=== PATIENT | female | born 1985 | race Caucasian/White ===

== ENCOUNTER 2025-02-23 05:20 | Inpatient (IN) | payer MEDICAID, OTHER ==
[2025-02-23] MEDS ORDERED: Famotidine/PF 20 mg/2ml Vial SLOW IVP PRN (05:52)
[2025-02-23] MEDS ORDERED: Bicitra 30 ML UDCUP PO PRN (05:52)
[2025-02-23] MEDS ORDERED: hydrALAZINE 20 MG/ML VIAL SLOW IVP PRN ×2 (05:52→09:58)
[2025-02-23] MEDS ORDERED: Ondansetron PF 4 MG/2 ML Vial IVP PRN ×2 (05:52→09:58)
[2025-02-23] MEDS ORDERED: Diphenoxylate HCl/Atropine Tablet PO PRN (05:52)
[2025-02-23] MEDS ORDERED: Methylergonovine 0.2 MG/ML VIAL IM PRN ×2 (05:52→09:58)
[2025-02-23] MEDS ORDERED: Acetaminophen 500 MG TAB PO PRN (05:52)
[2025-02-23] MEDS ORDERED: Carboprost 250 MCG/ML AMP IM PRN (05:52)
[2025-02-23] MEDS ORDERED: Tranexamic Acid 1,000 MG/10 ML VIAL IVP PRN (05:52)
[2025-02-23 05:59] VITALS: BMI 36.2
[2025-02-23] MEDS ORDERED: Oxytocin 30 units/NS 500 ML 500 ML IV SCH ×2 (06:00→09:58)
[2025-02-23 06:06] LABS: Hematocrit 33.9 % (34.9-44.5); Hemoglobin 11.8 g/dL (12.0-15.5); Mean Corpuscular Hemoglobin 29.6 pg (27.0-33.0); Mean Corpuscular Volume 85.0 fL (81.6-98.3); Platelet Count 235 10x3/uL (150-450); Red Blood Cell (RBC) Count 3.99 10x6/uL (3.90-5.03); White Blood Cell (WBC) Count 9.29 10x3/uL (3.5-10.5)
[2025-02-23] MEDS ORDERED: Azithromycin 500 MG in Sodium Chloride 0.9% 250 ML 250 ML IVPB SCH (06:15)
[2025-02-23 06:41] LABS: Syphilis Antibody Index 0.03 S/CO (<1.00 Non-Reactive)
[2025-02-23 06:43] LABS: Hep B Surf Ag - L&D Non-Reactive S/CO (NonReactive)
[2025-02-23] MEDS ORDERED: Boostrix 0.5 ML (Tdap) VIAL (>/=7 yrs of age) IM ONE (09:58)
[2025-02-23] MEDS ORDERED: Bisacodyl 10 MG SUPP PR PRN (09:58)
[2025-02-23] MEDS ORDERED: Simethicone Chewable 80 MG TAB PO PRN (09:58)
[2025-02-23] MEDS ORDERED: Acetaminophen 325 MG TAB PO PRN (09:58)
[2025-02-23] MEDS ORDERED: Lanolin Ointment 7 GM TUBE TOP PRN (09:58)
[2025-02-23] MEDS ORDERED: diphenhydrAMINE 25 MG CAP PO PRN (09:58)
[2025-02-23] MEDS: CEFAZOLIN 2 GM VIAL ONE (10:06)
[2025-02-23] MEDS: Azithromycin 500 MG VIAL ONE (10:06)
[2025-02-23] MEDS: Erythromycin Base 0.5% Oint 1 GM TUBE ONE (10:06)
[2025-02-23] MEDS: Ondansetron PF 4 MG/2 ML Vial ONE (10:07)
[2025-02-23] MEDS: Dexamethasone 10 MG/ML VIAL ONE (10:07)
[2025-02-23] MEDS: Oxytocin 10 UNITS/ML VIAL ONE (10:07)
[2025-02-23] MEDS ORDERED: diphenhydrAMINE 50 MG/ML VIAL IVP PRN (11:46)
[2025-02-23] MEDS ORDERED: Communication Order-Pharmacy FS SCH (12:00)
[2025-02-23] MEDS: Ondansetron PF 4 MG/2 ML Vial IVP PRN (12:40)
[2025-02-23] MEDS: Ketorolac Tromethamine 30 MG (1 mL) VIAL IVP SCH (14:44)
[2025-02-23] MEDS: Ferrous Sulfate 325 MG TAB PO SCH (22:12)
[2025-02-24 07:43] LABS: Hematocrit 25.6 % (34.9-44.5); Hemoglobin 8.8 g/dL (12.0-15.5); Mean Corpuscular Hemoglobin 29.6 pg (27.0-33.0); Mean Corpuscular Volume 86.2 fL (81.6-98.3); Platelet Count 186 10x3/uL (150-450); Red Blood Cell (RBC) Count 2.97 10x6/uL (3.90-5.03); White Blood Cell (WBC) Count 11.44 10x3/uL (3.5-10.5)
[2025-02-24] MEDS ORDERED: Dextrose 50% Abboject 50 ML SYRINGE SLOW IVP PRN ×2 (07:53→07:59)
[2025-02-24] MEDS ORDERED: Glucagon 1 MG/ML KIT IM PRN ×2 (07:53→07:59)
[2025-02-24] MEDS: HYDROcodone/Acetaminophen 5/325 mg Tablet PO PRN ×2 (09:13→13:29)
[2025-02-24] MEDS: Ibuprofen 800 MG TAB PO SCH (13:29)
[2025-02-24] MEDS ORDERED: Sucrose 24% 2 ML Dropette ONE (20:26)
[2025-02-25 08:50] VITALS: BP 117/67; TEMP 98
== END 2025-02-25 13:30 | disposition home or self-care (01) | DRG 788 ==
LOC: CSHLD/OP 05:20 → OBSVTOIN 05:56 → CSHLD 05:56 → CSHPED 11:02 → CSHPP 20:46
PROVIDERS: ADMIT Obstetrics & Gynecology; ATTEND Obstetrics & Gynecology
PROC: 10D00Z1 Extraction of Products of Conception, Low, Open Approach (ICD-10-PCS; principal; 2025-02-23)
DX: O24.429 Gestational diabetes mellitus in childbirth, unspecified control (principal); O99.214 Obesity complicating childbirth; E66.9 Obesity, unspecified; O34.13 Maternal care for benign tumor of corpus uteri, third trimester; Z3A.37 37 weeks gestation of pregnancy; Z37.0 Single live birth; Z79.899 Other long term (current) drug therapy
CPT/HCPCS: 36415; 36416; 51702; 85027; 86780; 86850; 86900; 86901; 87340; J1100; J1885; J2274; J2405; J2590

== ENCOUNTER 2025-03-02 09:02 | Emergency (ER) | payer MEDICAID, SELFPAY ==
[2025-03-02] MEDS ORDERED: Ketorolac Tromethamine 30 MG (1 mL) VIAL ONE (09:59)
[2025-03-02] MEDS ORDERED: Acetaminophen 500 MG TAB ONE (09:59)
[2025-03-02] MEDS ORDERED: Iopamidol 300 61% 100 ML VIAL FS ONE (10:36)
[2025-03-02 10:46] LABS: #Basophils Less than 0.03 10x3/uL (0.0-0.2); #Eosinophils Less than 0.03 10x3/uL (0.0-0.5); #Monocytes 0.45 10x3/uL (0.0-1.1); #Neutrophils 10.54 10x3/uL (1.5-8.4); %Basophils 0.2 % (0.0-2.0); %Eosinophils 0.2 % (0.0-6.0); %Lymphocytes 8.9 % (18.0-47.0); %Monocytes 3.7 % (0.0-10.0); %Neutrophils 86.3 % (40.0-75.0); Hematocrit 32.2 % (34.9-44.5); Hemoglobin 10.5 g/dL (12.0-15.5); Mean Corpuscular Hemoglobin 28.5 pg (27.0-33.0); Mean Corpuscular Volume 87.5 fL (81.6-98.3); Platelet Count 343 10x3/uL (150-450); Red Blood Cell (RBC) Count 3.68 10x6/uL (3.90-5.03); White Blood Cell (WBC) Count 12.20 10x3/uL (3.5-10.5)
[2025-03-02] MEDS ORDERED: Lactulose 20 GM (30 mL) UDCUP ONE ×2 (11:23)
[2025-03-02 11:29] LABS: ALT (SGPT) 27 U/L (Less than 34); AST (SGOT) 20 U/L (11-34); Albumin 3.3 g/dL (3.1-4.5); Alkaline Phosphatase 116 U/L (40-110); Anion Gap 14 mmol/L (10-20); BUN (Urea Nitrogen) 10 mg/dL (7.0-18.7); Bilirubin, Total 0.3 mg/dL (0.3-1.2); Calc. Creatinine Clearance 0 mL/min (70-130); Calcium 8.6 mg/dL (7.8-10.44); Carbon Dioxide 23 mmol/L (22-29); Chloride 108 mmol/L (98-107); Globulin 3.8 g/dL (2.4-3.5); Glucose 109 mg/dL (70-105); Potassium 4.0 mmol/L (3.5-5.1); Sodium 141 mmol/L (136-145)
[2025-03-02 13:28] LABS: Glucose, Urine (Dipstick) Normal (Negative); Leukocyte Negative (Negative); Protein, Urine (Dipstick) 30 mg/dl (Neg-Trace); Specific Gravity, Urine 1.005 (1.005-1.030)
[2025-03-02 13:49] LABS: RBC/HPF 21-50 HPF (0-3)
[2025-03-02 13:50] LABS: Bacteria/HPF None Seen HPF (None Seen); CAUTI Indications for Culture Dysuria,urgency,freq; Urine Culture Reflex No No; WBC/HPF 0-3 HPF (0-3)
== END 2025-03-02 14:45 | disposition home or self-care (01) ==
LOC: CSHERS 09:02
DX: K56.41 Fecal impaction (principal); F17.210 Nicotine dependence, cigarettes, uncomplicated
CPT/HCPCS: 74177; 80053; 81001; 83605; 85025; 96374; J1885; Q9967